=== PATIENT | male | born 1960 | race Caucasian/White ===

== ENCOUNTER 2020-07-18 20:33 | Emergency (ER) | payer BC ==
[~2020-07-18] VITALS: Ht 182.9 cm; Wt 99.8 kg
[2020-07-18] MEDS ORDERED: HYDROCODONE/APAP 10MG-325MG TAB PO ONE (21:30)
[2020-07-19 00:10] VITALS: BP 146/62
== END 2020-07-18 23:45 | disposition home or self-care (01) ==
LOC: ER 20:49
DX: S82.892A Other fracture of left lower leg, initial encounter for closed fracture (principal); X50.1XXA Overexertion from prolonged static or awkward postures, initial encounter; I10 Essential (primary) hypertension
CPT/HCPCS: 99283